=== PATIENT | female | born 1960 | race Caucasian/White ===

== ENCOUNTER → 2018-01-28 09:27 | Outpatient (CLI) | payer OTHER, SELFPAY ==
--- NOTE | 2018-01-28 | DI.MG.S_ITS ---
BILATERAL DIGITAL SCREENING MAMMOGRAM 3D/2D WITH CAD: 01/28/2018 CLINICAL: Routine screening. Family history of breast cancer. Comparison is made to exams dated: 08/08/2016 mammogram, 04/27/2014 mammogram, and 11/20/2011 mammogram - [facility]. The tissue of both breasts is heterogeneously dense. This may lower the sensitivity of mammography. Current study was also evaluated with a Computer Aided Detection (CAD) system. No significant masses, calcifications, or other findings are seen in either breast. There has been no significant interval change. IMPRESSION: NEGATIVE There is no mammographic evidence of malignancy. A 1 year screening mammogram is recommended. This exam was interpreted at Station ID: [id number]. NOTE: For mammograms, a report in lay terms will be sent to the patient. Approximately 15% of breast malignancies will not be visualized mammographically. In the management of a palpable breast mass, a negative mammogram must not discourage biopsy of a clinically suspicious lesion. Electronically Signed By: Shun [email or web address]/[email or web address]:01/29/2018 17:03:15 letter sent: Normal Exam ACR BI-RADS Category 1: Negative [id number]
== END ==
PROVIDERS: Family Provider Family Medicine; PCP Family Medicine; Visit Provider Nurse Practitioner Family
DX: Z12.31 Encounter for screening mammogram for malignant neoplasm of breast (principal); Z80.3 Family history of malignant neoplasm of breast; Z78.0 Asymptomatic menopausal state; Z82.62 Family history of osteoporosis
CPT/HCPCS: 77063; 77067; 77080

== ENCOUNTER 2018-09-11 12:30 | Outpatient (RCR) | payer OTHER, SELFPAY ==
--- NOTE | 2018-06-22 18:24 | PT.OPPOC ---
Current Diagnoses Pain in unspecified knee (06/22/18) Cervicalgia (06/22/18) Provider Visit Care Team Role Provider Type Allen Ruffin MD Attending Provider Physician Family Provider Primary Care Provider Specialty: Family Practice Address: [address] [place] [address], [id number] Email: Plan Of Care PT-OP-T Assessment and Plan Start: 06/22/18 17:03 Freq: Status: Active Protocol: Document 06/19/18 09:00 YOUSIF (Rec: 06/22/18 17:37 [facility] [id number]) Physical Therapy Assessment Rehab Potential Rehabilitation Potential Good Evaluation Complexity Number of Personal Factors/Comorbidities 1-2 Number of Body Systems Impaired 3 Clinical Presentation at Evaluation Stable Impairments Impairments Activity Tolerance Functional Activities Gait Strength Goals Four Impairment strength Penitentiary Goal (LTG) patient will improve her left LE strengthe by at least 1/2 grade all muscle groups and be independent with aquatic exercise program for long-term fitness and pain management. LTG Duration 2 months Three Impairment gait Penitentiary Goal (LTG) Patient will be able to ambulate on level surfaces without a limp and ascend and descend stairs with an alternating step pattern LTG Duration 2 months Two Impairment functional activities Penitentiary Goal (LTG) Patient will be able to perform sit to stand and functional squat without pain, with equal weight on jai LE's LTG Duration 2 months One Impairment activity tolerance Rubber Off Goal (LTG) Lower extremity functional scale increase to 75% LTG Duration 2 months Assessment Summary Assessment Patient presents with functiona-limiting left LE pain, gait dysfunction, activity intolerance, weakness . Feel she would benefit from aquatic therapy to decrease her pain, improve her strength , gait and tolerance for activity. She is highly motivated and comfortable in the water. Physical Therapy Plan Frequency and Duration Frequency of Treatment 2x/Week Duration of Treatment 2 months Plan of Care Start Date 06/19/18 Plan of Care End Date 08/20/18 Therapeutic Interventions Therapeutic Interventions Aquatic Therapy Home Exercise Program Patient/Caregiver Education Self-Care/Home Management Modalities Cold Pack/Ice Massage Next Visit Focus/Plan Next Note Type Treatment Note Next Visit Plan initiate aquatic therapy Plan of Care Dates Plan of Care Start Date 06/19/18 Plan of Care End Date 08/20/18 Please Sign and Return: I have reviewed this Plan of Care and certify that the skilled therapy services above are required to meet the patient?s needs. Physician Signature Date Printed Name and Credentials Clinical Instructor Signature Printed Name and Credentials
--- NOTE | 2018-06-22 18:25 | PT.OIE ---
Current Diagnoses Pain in unspecified knee (06/22/18) Cervicalgia (06/22/18) Difficulty in walking, not elsewhere classified (06/22/18) Abnormal posture (06/22/18) Weakness (06/22/18) Provider Visit Care Team Role Provider Type Allen Ruffin MD Attending Provider Physician Family Provider Primary Care Provider Specialty: Family Practice Address: [address] [place] [address], [id number] Email: Physical Therapy Initial Evaluation PT-OP-A Visit Information Start: 06/22/18 17:03 Freq: Status: Active Protocol: Document 06/19/18 09:00 SAK (Rec: 06/22/18 17:37 [facility] [id number]) Out-Patient Physical Therapy Visit Information Visit Information Visit Type Initial Evaluation Visit Start Time 09:00 Visit Stop Time 09:50 Total Visit Minutes 50 Visit Number 1 Number of FLUMER Visits 0 Evaluation Information Evaluation Date 06/19/18 PT-OP-B Current Condition Start: 06/22/18 17:03 Freq: Status: Active Protocol: Document 06/19/18 09:00 SAK (Rec: 06/22/18 17:37 [facility] [id number]) Current Condition History of Current Condition Onset Date 1 year Current Complaints persistent, function-limiting pain left knee and ankle. History of Current Condition Patient referred to PT with diagnosis of left knee pain and neck pain. Reports her neck pain is mostly mild at this time and would like to focus primarily on her knee pain which she states causes her to limp and makes ambulation on stairs difficult and painful. Has had prior land-based PT with minimal help. Now referred for aquatic physical therapy. States she tries ride her stationary bicycle 30 min every am and walk about 1 mile per day. Her work involves a lot of sitting at a desk and she states she knows her bent posture does not help her neck . Treatment Goals Patient/Caregiver Goals Improve her strength and flexibility, be able to ambulate on level surfaces and stairs without difficulty or limp. PT-OP-C Subjective Start: 06/22/18 17:03 Freq: Status: Active Protocol: Document 06/19/18 09:00 SAK (Rec: 06/22/18 18:17 SAK [id number]) Patient Questionnaires Lower Extremity Functional Scale LEFS Score 57 LEFS Impairment 20 to 39% Impaired (Score 48- 62) Neck Disability Index NDI Score 22 Neck Disability Index Impairment 20 to 39% Impaired (Score 10- 19) PT-OP-G Mobility & Gait Start: 06/22/18 17:03 Freq: Status: Active Protocol: Document 06/19/18 09:00 [facility] (Rec: 06/22/18 17:37 [facility] [id number]) OP Mobility Evaluation Transfers Sit to Stand decreased use of left LE Floor Transfers difficult and painful but independent Functional Movements Lifting and Carrying painful Squats painful Stair Climbing Evaluation Evaluation Level of Assist On Stairs Independent Technique/Endurance Stair Climbing Technique Step to Step Comments Stair Climbing Comments painful PT-OP-J Posture/Palpation/Skin Start: 06/22/18 17:03 Freq: Status: Active Protocol: Document 06/19/18 09:00 [facility] (Rec: 06/22/18 17:37 [facility] [id number]) Palpation Assessment Location left knee Palpation Location joint line Palpation Findings Tenderness Skin Assessment Edema Assessment Left Leg Edema Degree 1+ PT-OP-K Range of Motion Start: 06/22/18 17:03 Freq: Status: Active Protocol: Document 06/19/18 09:00 [facility] (Rec: 06/22/18 17:37 [facility] [id number]) Cervical Spine Range of Motion Cervical Spine Active Comments moderately decreased cervical ROM with c/o stiffness and ache Hip Goniometric Range of Motion Hip ROM Limitations Comments WFL jai Knee Goniometric Range of Motion Knee ROM Limitations Comments WFL but with pain end-range flex and ext Ankle and Foot Goniometric Range of Motion Ankle and Foot ROM Limitations Comments left ankle df 5, right 8 PT-OP-L Special Tests Start: 06/22/18 17:03 Freq: Status: Active Protocol: Document 06/19/18 09:00 [facility] (Rec: 06/22/18 17:37 [facility] [id number]) Special Tests Knee Special Tests Posterior Draw Test Results negative jai Anterior Draw Test Results negative jai Varus- 0 Degrees Test Results negative jai Valgus- 0 Degrees Test Results negative jai PT-OP-M Strength Start: 06/22/18 17:03 Freq: Status: Active Protocol: Document 06/19/18 09:00 [facility] (Rec: 06/22/18 17:37 [facility] [id number]) Hip Strength Hip Manual Muscle Testing Left Flexion (L2) 4 Good Extension (S1) 3+ Fair+ Abduction 4 Good External Rotation 3+ Fair+ Internal Rotation 4+ Good+ Right Flexion (L2) 4 Good Extension (S1) 3+ Fair+ Abduction 4- Good- External Rotation 4- Good- Internal Rotation 4 Good Knee Strength Knee Manual Muscle Testing Left Flexion (S2) 4 Good Extension (L3) 4 Good Comments painful Right Flexion (S2) 5 Normal Extension (L3) 5 Normal Ankle/Foot Strength Ankle and Foot Manual Muscle Testing Left Dorsiflexion (L4) 4 Good Plantarflexion (S1) 4 Good Inversion 4 Good Eversion (S1) 4 Good Right Dorsiflexion (L4) 4+ Good+ Plantarflexion (S1) 4+ Good+ Inversion 4+ Good+ Eversion (S1) 4+ Good+ PT-OP-Q Treatments Start: 06/22/18 17:03 Freq: Status: Active Protocol: Document 06/19/18 09:00 [facility] (Rec: 06/22/18 17:37 [facility] [id number]) Self-Care/Home Management Treatment Education Patient Education Home Exercise Program Other Education written handout issued PT-OP-R Modalities Start: 06/22/18 17:03 Freq: Status: Active Protocol: Document 06/19/18 09:00 [facility] (Rec: 06/22/18 17:37 [facility] [id number]) Hot Pack/Cold Pack Treatment Cold Pack Location left knee Patient Position Hooklying Treatment Duration (minutes) 10 Patient Tolerance Good PT-OP-T Assessment and Plan Start: 06/22/18 17:03 Freq: Status: Active Protocol: Document 06/19/18 09:00 [facility] (Rec: 06/22/18 17:37 [facility] [id number]) Physical Therapy Assessment Rehab Potential Rehabilitation Potential Good Evaluation Complexity Number of Personal Factors/Comorbidities 1-2 Number of Body Systems Impaired 3 Clinical Presentation at Evaluation Stable Impairments Impairments Activity Tolerance Functional Activities Gait Strength Goals Four Impairment strength Residential Goal (LTG) patient will improve her left LE strengthe by at least 1/2 grade all muscle groups and be independent with aquatic exercise program for long-term fitness and pain management. LTG Duration 2 months Three Impairment gait Residential Goal (LTG) Patient will be able to ambulate on level surfaces without a limp and ascend and descend stairs with an alternating step pattern LTG Duration 2 months Two Impairment functional activities Residential Goal (LTG) Patient will be able to perform sit to stand and functional squat without pain, with equal weight on jai LE's LTG Duration 2 months One Impairment activity tolerance Structural Steel Ironworker Goal (LTG) Lower extremity functional scale increase to 75% LTG Duration 2 months Assessment Summary Assessment Patient presents with functiona-limiting left LE pain, gait dysfunction, activity intolerance, weakness . Feel she would benefit from aquatic therapy to decrease her pain, improve her strength , gait and tolerance for activity. She is highly motivated and comfortable in the water. Physical Therapy Plan Frequency and Duration Frequency of Treatment 2x/Week Duration of Treatment 2 months Plan of Care Start Date 06/19/18 Plan of Care End Date 08/20/18 Therapeutic Interventions Therapeutic Interventions Aquatic Therapy Home Exercise Program Patient/Caregiver Education Self-Care/Home Management Modalities Cold Pack/Ice Massage Next Visit Focus/Plan Next Note Type Treatment Note Next Visit Plan initiate aquatic therapy
--- NOTE | 2018-06-23 16:53 | PT.OTN ---
Current Diagnoses Pain in unspecified knee (06/22/18) Cervicalgia (06/22/18) Difficulty in walking, not elsewhere classified (06/22/18) Abnormal posture (06/22/18) Weakness (06/22/18) Physical Therapy Treatment Note PT-OP-A Visit Information Start: 06/22/18 17:03 Freq: Status: Active Protocol: Document 06/22/18 10:15 SAK (Rec: 06/23/18 16:53 [facility] [id number]) Out-Patient Physical Therapy Visit Information Visit Information Visit Type Aquatic Treatment Note Visit Start Time 10:15 Visit Stop Time 11:00 Total Visit Minutes 45 Visit Number 2 Evaluation Information Evaluation Date 06/19/18 PT-OP-B Current Condition Start: 06/22/18 17:03 Freq: Status: Active Protocol: Document 06/19/18 09:00 SAK (Rec: 06/22/18 17:37 [facility] [id number]) Current Condition History of Current Condition Onset Date 1 year Current Complaints persistent, function-limiting pain left knee and ankle. History of Current Condition Patient referred to PT with diagnosis of left knee pain and neck pain. Reports her neck pain is mostly mild at this time and would like to focus primarily on her knee pain which she states causes her to limp and makes ambulation on stairs difficult and painful. Has had prior land-based PT with minimal help. Now referred for aquatic physical therapy. States she tries ride her stationary bicycle 30 min every am and walk about 1 mile per day. Her work involves a lot of sitting at a desk and she states she knows her bent posture does not help her neck . Treatment Goals Patient/Caregiver Goals Improve her strength and flexibility, be able to ambulate on level surfaces and stairs without difficulty or limp. PT-OP-C Subjective Start: 06/22/18 17:03 Freq: Status: Active Protocol: Document 06/22/18 10:15 SAK (Rec: 06/23/18 16:53 [facility] [id number]) OP-PT Subjective Patient Comments Patient Comments Patient excited to try aquatic therapy PT-OP-G Mobility & Gait Start: 06/22/18 17:03 Freq: Status: Active Protocol: Document 06/19/18 09:00 SAK (Rec: 06/22/18 17:37 [facility] [id number]) OP Mobility Evaluation Transfers Sit to Stand decreased use of left LE Floor Transfers difficult and painful but independent Functional Movements Lifting and Carrying painful Squats painful Stair Climbing Evaluation Evaluation Level of Assist On Stairs Independent Technique/Endurance Stair Climbing Technique Step to Step Comments Stair Climbing Comments painful PT-OP-J Posture/Palpation/Skin Start: 06/22/18 17:03 Freq: Status: Active Protocol: Document 06/19/18 09:00 [facility] (Rec: 06/22/18 17:37 [facility] [id number]) Palpation Assessment Location left knee Palpation Location joint line Palpation Findings Tenderness Skin Assessment Edema Assessment Left Leg Edema Degree 1+ PT-OP-K Range of Motion Start: 06/22/18 17:03 Freq: Status: Active Protocol: Document 06/19/18 09:00 [facility] (Rec: 06/22/18 17:37 [facility] [id number]) Cervical Spine Range of Motion Cervical Spine Active Comments moderately decreased cervical ROM with c/o stiffness and ache Hip Goniometric Range of Motion Hip ROM Limitations Comments WFL jai Knee Goniometric Range of Motion Knee ROM Limitations Comments WFL but with pain end-range flex and ext Ankle and Foot Goniometric Range of Motion Ankle and Foot ROM Limitations Comments left ankle df 5, right 8 PT-OP-L Special Tests Start: 06/22/18 17:03 Freq: Status: Active Protocol: Document 06/19/18 09:00 [facility] (Rec: 06/22/18 17:37 [facility] [id number]) Special Tests Knee Special Tests Posterior Draw Test Results negative jai Anterior Draw Test Results negative jai Varus- 0 Degrees Test Results negative jai Valgus- 0 Degrees Test Results negative jai PT-OP-M Strength Start: 06/22/18 17:03 Freq: Status: Active Protocol: Document 06/19/18 09:00 [facility] (Rec: 06/22/18 17:37 [facility] [id number]) Hip Strength Hip Manual Muscle Testing Left Flexion (L2) 4 Good Extension (S1) 3+ Fair+ Abduction 4 Good External Rotation 3+ Fair+ Internal Rotation 4+ Good+ Right Flexion (L2) 4 Good Extension (S1) 3+ Fair+ Abduction 4- Good- External Rotation 4- Good- Internal Rotation 4 Good Knee Strength Knee Manual Muscle Testing Left Flexion (S2) 4 Good Extension (L3) 4 Good Comments painful Right Flexion (S2) 5 Normal Extension (L3) 5 Normal Ankle/Foot Strength Ankle and Foot Manual Muscle Testing Left Dorsiflexion (L4) 4 Good Plantarflexion (S1) 4 Good Inversion 4 Good Eversion (S1) 4 Good Right Dorsiflexion (L4) 4+ Good+ Plantarflexion (S1) 4+ Good+ Inversion 4+ Good+ Eversion (S1) 4+ Good+ PT-OP-Q Treatments Start: 06/22/18 17:03 Freq: Status: Active Protocol: Document 06/19/18 09:00 [facility] (Rec: 06/22/18 17:37 [facility] [id number]) Self-Care/Home Management Treatment Education Patient Education Home Exercise Program Other Education written handout issued PT-OP-R Modalities Start: 06/22/18 17:03 Freq: Status: Active Protocol: Document 06/19/18 09:00 SAK (Rec: 06/22/18 17:37 [facility] [id number]) Hot Pack/Cold Pack Treatment Cold Pack Location left knee Patient Position Hooklying Treatment Duration (minutes) 10 Patient Tolerance Good PT-OP-S Aquatic Treatment Start: 06/22/18 17:03 Freq: Status: Active Protocol: Document 06/22/18 10:15 SAK (Rec: 06/23/18 16:53 [facility] [id number]) Aquatics Treatment Pool Entry/Exit Pool Entry/Exit Method Stairs Assistance Independent Water Walking fwd,bck,september Water Level Chest Level Level of Assistance Verbal Cues Lower Extremity Exercises knee flex/ext Reps/Duration 10x squats Reps/Duration 10x heel raises Body Position Standing Water Level Chest Level Reps/Duration 10x hip ab/ad, flex/ex Body Position Standing Water Level Chest Level Reps/Duration 10x Lower Extremity Stretches quads Body Position Standing Water Level Chest Level Equipment Ankle Floats HS, ITB, hip add Body Position Standing Water Level Chest Level Equipment Ankle Floats Reps/Duration 2x [place] Activities [place] Activities Bicycle Cross Country Running Equipment flotation belt Duration 15 min PT-OP-T Assessment and Plan Start: 06/22/18 17:03 Freq: Status: Active Protocol: Document 06/22/18 10:15 SAK (Rec: 06/23/18 16:53 [facility] [id number]) Physical Therapy Assessment Impairments Impairments Activity Tolerance Functional Activities Gait Strength Goals Four Impairment strength Mcc Goal (LTG) patient will improve her left LE strengthe by at least 1/2 grade all muscle groups and be independent with aquatic exercise program for long-term fitness and pain management. LTG Duration 2 months Three Impairment gait Licensed Esthetician Goal (LTG) Patient will be able to ambulate on level surfaces without a limp and ascend and descend stairs with an alternating step pattern LTG Duration 2 months Two Impairment functional activities Mcc Goal (LTG) Patient will be able to perform sit to stand and functional squat without pain, with equal weight on jai LE's LTG Duration 2 months One Impairment activity tolerance Licensed Esthetician Goal (LTG) Lower extremity functional scale increase to 75% LTG Duration 2 months Assessment Summary Assessment Good tolerance for aquatic exercise with mod cues for alignment and performance. Denied increase in pain Physical Therapy Plan Next Visit Focus/Plan Next Note Type Treatment Note Next Visit Plan add step-ups, sit-kicks. Increase intensity and repetitions as toleated.
--- NOTE | 2018-07-06 15:20 | PT.OTN ---
Current Diagnoses Pain in unspecified knee (07/06/18) Cervicalgia (07/06/18) Physical Therapy Treatment Note PT-OP-A Visit Information Start: 06/22/18 17:03 Freq: Status: Active Protocol: Document 07/06/18 10:15 SAK (Rec: 07/06/18 15:19 [facility] [id number]) Out-Patient Physical Therapy Visit Information Visit Information Visit Type Aquatic Treatment Note Visit Start Time 10:15 Visit Stop Time 11:00 Total Visit Minutes 45 Visit Number 3 Number of HEALTH ASSESSMENT AND TREATMENT TEACHER Visits 0 Evaluation Information Evaluation Date 06/19/18 PT-OP-B Current Condition Start: 06/22/18 17:03 Freq: Status: Active Protocol: Document 06/19/18 09:00 SAK (Rec: 06/22/18 17:37 [facility] [id number]) Current Condition History of Current Condition Onset Date 1 year Current Complaints persistent, function-limiting pain left knee and ankle. History of Current Condition Patient referred to PT with diagnosis of left knee pain and neck pain. Reports her neck pain is mostly mild at this time and would like to focus primarily on her knee pain which she states causes her to limp and makes ambulation on stairs difficult and painful. Has had prior land-based PT with minimal help. Now referred for aquatic physical therapy. States she tries ride her stationary bicycle 30 min every am and walk about 1 mile per day. Her work involves a lot of sitting at a desk and she states she knows her bent posture does not help her neck . Treatment Goals Patient/Caregiver Goals Improve her strength and flexibility, be able to ambulate on level surfaces and stairs without difficulty or limp. PT-OP-C Subjective Start: 06/22/18 17:03 Freq: Status: Active Protocol: Document 07/06/18 10:15 SAK (Rec: 07/06/18 15:19 [facility] [id number]) OP-PT Subjective Patient Comments Patient Comments Reports a little muscle soreness after PT but overall decreased knee pain for 1-2 days after, then pain returned . PT-OP-G Mobility & Gait Start: 06/22/18 17:03 Freq: Status: Active Protocol: Document 06/19/18 09:00 SAK (Rec: 06/22/18 17:37 [facility] [id number]) OP Mobility Evaluation Transfers Sit to Stand decreased use of left LE Floor Transfers difficult and painful but independent Functional Movements Lifting and Carrying painful Squats painful Stair Climbing Evaluation Evaluation Level of Assist On Stairs Independent Technique/Endurance Stair Climbing Technique Step to Step Comments Stair Climbing Comments painful PT-OP-J Posture/Palpation/Skin Start: 06/22/18 17:03 Freq: Status: Active Protocol: Document 06/19/18 09:00 [facility] (Rec: 06/22/18 17:37 [facility] [id number]) Palpation Assessment Location left knee Palpation Location joint line Palpation Findings Tenderness Skin Assessment Edema Assessment Left Leg Edema Degree 1+ PT-OP-K Range of Motion Start: 06/22/18 17:03 Freq: Status: Active Protocol: Document 06/19/18 09:00 [facility] (Rec: 06/22/18 17:37 [facility] [id number]) Cervical Spine Range of Motion Cervical Spine Active Comments moderately decreased cervical ROM with c/o stiffness and ache Hip Goniometric Range of Motion Hip ROM Limitations Comments WFL jai Knee Goniometric Range of Motion Knee ROM Limitations Comments WFL but with pain end-range flex and ext Ankle and Foot Goniometric Range of Motion Ankle and Foot ROM Limitations Comments left ankle df 5, right 8 PT-OP-L Special Tests Start: 06/22/18 17:03 Freq: Status: Active Protocol: Document 06/19/18 09:00 [facility] (Rec: 06/22/18 17:37 [facility] [id number]) Special Tests Knee Special Tests Posterior Draw Test Results negative jai Anterior Draw Test Results negative jai Varus- 0 Degrees Test Results negative jai Valgus- 0 Degrees Test Results negative jai PT-OP-M Strength Start: 06/22/18 17:03 Freq: Status: Active Protocol: Document 06/19/18 09:00 [facility] (Rec: 06/22/18 17:37 [facility] [id number]) Hip Strength Hip Manual Muscle Testing Left Flexion (L2) 4 Good Extension (S1) 3+ Fair+ Abduction 4 Good External Rotation 3+ Fair+ Internal Rotation 4+ Good+ Right Flexion (L2) 4 Good Extension (S1) 3+ Fair+ Abduction 4- Good- External Rotation 4- Good- Internal Rotation 4 Good Knee Strength Knee Manual Muscle Testing Left Flexion (S2) 4 Good Extension (L3) 4 Good Comments painful Right Flexion (S2) 5 Normal Extension (L3) 5 Normal Ankle/Foot Strength Ankle and Foot Manual Muscle Testing Left Dorsiflexion (L4) 4 Good Plantarflexion (S1) 4 Good Inversion 4 Good Eversion (S1) 4 Good Right Dorsiflexion (L4) 4+ Good+ Plantarflexion (S1) 4+ Good+ Inversion 4+ Good+ Eversion (S1) 4+ Good+ PT-OP-Q Treatments Start: 06/22/18 17:03 Freq: Status: Active Protocol: Document 06/19/18 09:00 [facility] (Rec: 06/22/18 17:37 [facility] [id number]) Self-Care/Home Management Treatment Education Patient Education Home Exercise Program Other Education written handout issued PT-OP-R Modalities Start: 06/22/18 17:03 Freq: Status: Active Protocol: Document 06/19/18 09:00 [facility] (Rec: 06/22/18 17:37 [facility] [id number]) Hot Pack/Cold Pack Treatment Cold Pack Location left knee Patient Position Hooklying Treatment Duration (minutes) 10 Patient Tolerance Good PT-OP-S Aquatic Treatment Start: 06/22/18 17:03 Freq: Status: Active Protocol: Document 07/06/18 10:15 SAK (Rec: 07/06/18 15:19 [facility] [id number]) Aquatics Treatment Pool Entry/Exit Pool Entry/Exit Method Stairs Assistance Independent Water Walking [place] September Level of Assistance Contact Guard Assistance Verbal Cues fwd,bck,side, september Water Level Chest Level Level of Assistance Verbal Cues Lower Extremity Exercises step-ups Equipment large boxes Reps/Duration 10x leading ea knee flex/ext Reps/Duration 15x squats Reps/Duration 15x heel raises Body Position Standing Water Level Chest Level Reps/Duration 10x hip ab/ad, flex/ex Body Position Standing Water Level Chest Level Reps/Duration 10x Lower Extremity Stretches quads Body Position Standing Water Level Chest Level Equipment Ankle Floats HS, ITB, hip add Body Position Standing Water Level Chest Level Equipment Ankle Floats Reps/Duration 2x [place] Activities [place] Activities Bicycle Cross Country Running Equipment none Duration 15 min PT-OP-T Assessment and Plan Start: 06/22/18 17:03 Freq: Status: Active Protocol: Document 07/06/18 10:15 SAK (Rec: 07/06/18 15:19 [facility] [id number]) Physical Therapy Assessment Goals Four Impairment strength Skilled Nursing Goal (LTG) patient will improve her left LE strengthe by at least 1/2 grade all muscle groups and be independent with aquatic exercise program for long-term fitness and pain management. LTG Duration 2 months Three Impairment gait Skilled Nursing Goal (LTG) Patient will be able to ambulate on level surfaces without a limp and ascend and descend stairs with an alternating step pattern LTG Duration 2 months Two Impairment functional activities Skilled Nursing Goal (LTG) Patient will be able to perform sit to stand and functional squat without pain, with equal weight on jai LE's LTG Duration 2 months One Impairment activity tolerance Table Assembler Metal Goal (LTG) Lower extremity functional scale increase to 75% LTG Duration 2 months Assessment Summary Assessment Able to progress aquatic exercise program with good tolerance today. Physical Therapy Plan Frequency and Duration Frequency of Treatment 2x/Week Duration of Treatment 2 months Plan of Care Start Date 06/19/18 Plan of Care End Date 08/20/18 Therapeutic Interventions Therapeutic Interventions Aquatic Therapy Home Exercise Program Patient/Caregiver Education Self-Care/Home Management Modalities Cold Pack/Ice Massage Next Visit Focus/Plan Next Note Type Treatment Note Next Visit Plan add sit-kicks. Increase intensity and repetitions as tolerated.
--- NOTE | 2018-07-20 14:46 | PT.OTN ---
Current Diagnoses Pain in unspecified knee (07/20/18) Cervicalgia (07/20/18) Physical Therapy Treatment Note PT-OP-A Visit Information Start: 06/22/18 17:03 Freq: Status: Active Protocol: Document 07/20/18 10:15 [facility] (Rec: 07/20/18 14:46 [facility] [id number]) Out-Patient Physical Therapy Visit Information Visit Information Visit Type Aquatic Treatment Note Visit Start Time 10:15 Visit Stop Time 11:00 Total Visit Minutes 45 Visit Number 4 Number of SPINNER IRON Visits 1 PT-OP-B Current Condition Start: 06/22/18 17:03 Freq: Status: Active Protocol: Document 06/19/18 09:00 SAK (Rec: 06/22/18 17:37 SAK [id number]) Current Condition History of Current Condition Onset Date 1 year Current Complaints persistent, function-limiting pain left knee and ankle. History of Current Condition Patient referred to PT with diagnosis of left knee pain and neck pain. Reports her neck pain is mostly mild at this time and would like to focus primarily on her knee pain which she states causes her to limp and makes ambulation on stairs difficult and painful. Has had prior land-based PT with minimal help. Now referred for aquatic physical therapy. States she tries ride her stationary bicycle 30 min every am and walk about 1 mile per day. Her work involves a lot of sitting at a desk and she states she knows her bent posture does not help her neck . Treatment Goals Patient/Caregiver Goals Improve her strength and flexibility, be able to ambulate on level surfaces and stairs without difficulty or limp. PT-OP-C Subjective Start: 06/22/18 17:03 Freq: Status: Active Protocol: Document 07/20/18 10:15 [facility] (Rec: 07/20/18 14:46 LJ [id number]) OP-PT Subjective Patient Comments Patient Comments Pt states some knee pain but not terrible. PT-OP-G Mobility & Gait Start: 06/22/18 17:03 Freq: Status: Active Protocol: Document 06/19/18 09:00 SAK (Rec: 06/22/18 17:37 SAK [id number]) OP Mobility Evaluation Transfers Sit to Stand decreased use of left LE Floor Transfers difficult and painful but independent Functional Movements Lifting and Carrying painful Squats painful Stair Climbing Evaluation Evaluation Level of Assist On Stairs Independent Technique/Endurance Stair Climbing Technique Step to Step Comments Stair Climbing Comments painful PT-OP-J Posture/Palpation/Skin Start: 06/22/18 17:03 Freq: Status: Active Protocol: Document 06/19/18 09:00 [facility] (Rec: 06/22/18 17:37 [facility] [id number]) Palpation Assessment Location left knee Palpation Location joint line Palpation Findings Tenderness Skin Assessment Edema Assessment Left Leg Edema Degree 1+ PT-OP-K Range of Motion Start: 06/22/18 17:03 Freq: Status: Active Protocol: Document 06/19/18 09:00 [facility] (Rec: 06/22/18 17:37 [facility] [id number]) Cervical Spine Range of Motion Cervical Spine Active Comments moderately decreased cervical ROM with c/o stiffness and ache Hip Goniometric Range of Motion Hip ROM Limitations Comments WFL jai Knee Goniometric Range of Motion Knee ROM Limitations Comments WFL but with pain end-range flex and ext Ankle and Foot Goniometric Range of Motion Ankle and Foot ROM Limitations Comments left ankle df 5, right 8 PT-OP-L Special Tests Start: 06/22/18 17:03 Freq: Status: Active Protocol: Document 06/19/18 09:00 [facility] (Rec: 06/22/18 17:37 [facility] [id number]) Special Tests Knee Special Tests Posterior Draw Test Results negative jai Anterior Draw Test Results negative jai Varus- 0 Degrees Test Results negative jai Valgus- 0 Degrees Test Results negative jai PT-OP-M Strength Start: 06/22/18 17:03 Freq: Status: Active Protocol: Document 06/19/18 09:00 [facility] (Rec: 06/22/18 17:37 [facility] [id number]) Hip Strength Hip Manual Muscle Testing Left Flexion (L2) 4 Good Extension (S1) 3+ Fair+ Abduction 4 Good External Rotation 3+ Fair+ Internal Rotation 4+ Good+ Right Flexion (L2) 4 Good Extension (S1) 3+ Fair+ Abduction 4- Good- External Rotation 4- Good- Internal Rotation 4 Good Knee Strength Knee Manual Muscle Testing Left Flexion (S2) 4 Good Extension (L3) 4 Good Comments painful Right Flexion (S2) 5 Normal Extension (L3) 5 Normal Ankle/Foot Strength Ankle and Foot Manual Muscle Testing Left Dorsiflexion (L4) 4 Good Plantarflexion (S1) 4 Good Inversion 4 Good Eversion (S1) 4 Good Right Dorsiflexion (L4) 4+ Good+ Plantarflexion (S1) 4+ Good+ Inversion 4+ Good+ Eversion (S1) 4+ Good+ PT-OP-Q Treatments Start: 06/22/18 17:03 Freq: Status: Active Protocol: Document 06/19/18 09:00 SAK (Rec: 06/22/18 17:37 SAK [id number]) Self-Care/Home Management Treatment Education Patient Education Home Exercise Program Other Education written handout issued PT-OP-R Modalities Start: 06/22/18 17:03 Freq: Status: Active Protocol: Document 06/19/18 09:00 SAK (Rec: 06/22/18 17:37 SAK [id number]) Hot Pack/Cold Pack Treatment Cold Pack Location left knee Patient Position Hooklying Treatment Duration (minutes) 10 Patient Tolerance Good PT-OP-S Aquatic Treatment Start: 06/22/18 17:03 Freq: Status: Active Protocol: Document 07/20/18 10:15 [facility] (Rec: 07/20/18 14:46 [facility] [id number]) Aquatics Treatment Pool Entry/Exit Pool Entry/Exit Method Stairs Assistance Independent Water Walking [place] September Level of Assistance Standby Assistance Verbal Cues fwd,bck,side, september Water Level Chest Level Level of Assistance Verbal Cues Lower Extremity Exercises sit kicks Details squating at wall Reps/Duration 10x bilat hip circumduction bilat both directions Equipment 10 bilat, each dir step-ups Equipment large boxes Reps/Duration 10x leading ea knee flex/ext Reps/Duration 15x squats Reps/Duration 15x Comments vc for muscle sequencing heel raises Body Position Standing Water Level Chest Level Reps/Duration 10x Comments toe raises also hip ab/ad, flex/ex Body Position Standing Water Level Chest Level Reps/Duration 10x Lower Extremity Stretches quads Body Position Standing Water Level Chest Level Equipment noodle Reps/Duration 2x HS, ITB, hip add Body Position Standing Water Level Chest Level Equipment noodle Reps/Duration 2x [place] Activities [place] Activities Bicycle Cross Country Running Other Activities corner SLR x10 verbal cues for core activation Equipment none Duration 15 min PT-OP-T Assessment and Plan Start: 06/22/18 17:03 Freq: Status: Active Protocol: Document 07/20/18 10:15 [facility] (Rec: 07/20/18 14:46 [facility] [id number]) Physical Therapy Assessment Rehab Potential Rehabilitation Potential Good Evaluation Complexity Number of Personal Factors/Comorbidities 1-2 Number of Body Systems Impaired 3 Clinical Presentation at Evaluation Stable Impairments Impairments Activity Tolerance Functional Activities Gait Strength Goals Four Impairment strength Itinerant Teacher Assistant Goal (LTG) patient will improve her left LE strengthe by at least 1/2 grade all muscle groups and be independent with aquatic exercise program for long-term fitness and pain management. LTG Duration 2 months Three Impairment gait Half-Way Goal (LTG) Patient will be able to ambulate on level surfaces without a limp and ascend and descend stairs with an alternating step pattern LTG Duration 2 months Two Impairment functional activities Half-Way Goal (LTG) Patient will be able to perform sit to stand and functional squat without pain, with equal weight on jai LE's LTG Duration 2 months One Impairment activity tolerance Half-Way Goal (LTG) Lower extremity functional scale increase to 75% LTG Duration 2 months Assessment Summary Assessment Pt had some difficulty sequencing muscle activation in squats and step ups. Overall her posture improved during session and she was able to increase intensity and power of movements in deep and standing exercises. Physical Therapy Plan Frequency and Duration Frequency of Treatment 2x/Week Duration of Treatment 2 months Plan of Care Start Date 06/19/18 Plan of Care End Date 08/20/18 Therapeutic Interventions Therapeutic Interventions Aquatic Therapy Home Exercise Program Patient/Caregiver Education Self-Care/Home Management Modalities Cold Pack/Ice Massage Next Visit Focus/Plan Next Note Type Treatment Note Next Visit Plan Increase intensity and repetitions as tolerated. Incorporate posterior chain exercises and balance work in shallow.
--- NOTE | 2018-08-24 17:57 | PT.OTRE ---
Current Diagnoses Pain in unspecified knee (08/24/18) Cervicalgia (08/24/18) Provider Visit Care Team Role Provider Type Allen Ruffin MD Attending Provider Physician Family Provider Primary Care Provider Specialty: Family Practice Address: [address] [place] [address], [id number] Email: Physical Therapy Re-Evaluation PT-OP-A Visit Information Start: 06/22/18 17:03 Freq: Status: Active Protocol: Document 08/24/18 10:15 SAK (Rec: 08/24/18 17:56 [facility] [id number]) Out-Patient Physical Therapy Visit Information Visit Information Visit Type Aquatic Treatment Note Visit Start Time 10:15 Visit Stop Time 11:00 Total Visit Minutes 45 Visit Number 5 Number of TILE EDGER Visits 0 Evaluation Information Evaluation Date 06/19/18 PT-OP-B Current Condition Start: 06/22/18 17:03 Freq: Status: Active Protocol: Document 06/19/18 09:00 SAK (Rec: 06/22/18 17:37 [facility] [id number]) Current Condition History of Current Condition Onset Date 1 year Current Complaints persistent, function-limiting pain left knee and ankle. History of Current Condition Patient referred to PT with diagnosis of left knee pain and neck pain. Reports her neck pain is mostly mild at this time and would like to focus primarily on her knee pain which she states causes her to limp and makes ambulation on stairs difficult and painful. Has had prior land-based PT with minimal help. Now referred for aquatic physical therapy. States she tries ride her stationary bicycle 30 min every am and walk about 1 mile per day. Her work involves a lot of sitting at a desk and she states she knows her bent posture does not help her neck . Treatment Goals Patient/Caregiver Goals Improve her strength and flexibility, be able to ambulate on level surfaces and stairs without difficulty or limp. PT-OP-C Subjective Start: 06/22/18 17:03 Freq: Status: Active Protocol: Document 08/24/18 10:15 SAK (Rec: 08/24/18 17:56 [facility] [id number]) OP-PT Subjective Patient Comments Patient Comments Reports she is feeling stronger, remembering to activate gluteals with walking including on stairs and states it is making a difference with her pain, she reports feeling stronger. Glad to be back in the water for aquatic therapy after needing to cancel due to weather after being gone for vacation. PT-OP-G Mobility & Gait Start: 06/22/18 17:03 Freq: Status: Active Protocol: Document 06/19/18 09:00 [facility] (Rec: 06/22/18 17:37 [facility] [id number]) OP Mobility Evaluation Transfers Sit to Stand decreased use of left LE Floor Transfers difficult and painful but independent Functional Movements Lifting and Carrying painful Squats painful Stair Climbing Evaluation Evaluation Level of Assist On Stairs Independent Technique/Endurance Stair Climbing Technique Step to Step Comments Stair Climbing Comments painful PT-OP-J Posture/Palpation/Skin Start: 06/22/18 17:03 Freq: Status: Active Protocol: Document 06/19/18 09:00 [facility] (Rec: 06/22/18 17:37 [facility] [id number]) Palpation Assessment Location left knee Palpation Location joint line Palpation Findings Tenderness Skin Assessment Edema Assessment Left Leg Edema Degree 1+ PT-OP-K Range of Motion Start: 06/22/18 17:03 Freq: Status: Active Protocol: Document 06/19/18 09:00 [facility] (Rec: 06/22/18 17:37 [facility] [id number]) Cervical Spine Range of Motion Cervical Spine Active Comments moderately decreased cervical ROM with c/o stiffness and ache Hip Goniometric Range of Motion Hip ROM Limitations Comments WFL jai Knee Goniometric Range of Motion Knee ROM Limitations Comments WFL but with pain end-range flex and ext Ankle and Foot Goniometric Range of Motion Ankle and Foot ROM Limitations Comments left ankle df 5, right 8 PT-OP-L Special Tests Start: 06/22/18 17:03 Freq: Status: Active Protocol: Document 06/19/18 09:00 [facility] (Rec: 06/22/18 17:37 [facility] [id number]) Special Tests Knee Special Tests Posterior Draw Test Results negative jai Anterior Draw Test Results negative jai Varus- 0 Degrees Test Results negative jai Valgus- 0 Degrees Test Results negative jai PT-OP-M Strength Start: 06/22/18 17:03 Freq: Status: Active Protocol: Document 06/19/18 09:00 [facility] (Rec: 06/22/18 17:37 [facility] [id number]) Hip Strength Hip Manual Muscle Testing Left Flexion (L2) 4 Good Extension (S1) 3+ Fair+ Abduction 4 Good External Rotation 3+ Fair+ Internal Rotation 4+ Good+ Right Flexion (L2) 4 Good Extension (S1) 3+ Fair+ Abduction 4- Good- External Rotation 4- Good- Internal Rotation 4 Good Knee Strength Knee Manual Muscle Testing Left Flexion (S2) 4 Good Extension (L3) 4 Good Comments painful Right Flexion (S2) 5 Normal Extension (L3) 5 Normal Ankle/Foot Strength Ankle and Foot Manual Muscle Testing Left Dorsiflexion (L4) 4 Good Plantarflexion (S1) 4 Good Inversion 4 Good Eversion (S1) 4 Good Right Dorsiflexion (L4) 4+ Good+ Plantarflexion (S1) 4+ Good+ Inversion 4+ Good+ Eversion (S1) 4+ Good+ PT-OP-Q Treatments Start: 06/22/18 17:03 Freq: Status: Active Protocol: Document 06/19/18 09:00 [facility] (Rec: 06/22/18 17:37 [facility] [id number]) Self-Care/Home Management Treatment Education Patient Education Home Exercise Program Other Education written handout issued PT-OP-R Modalities Start: 06/22/18 17:03 Freq: Status: Active Protocol: Document 06/19/18 09:00 [facility] (Rec: 06/22/18 17:37 [facility] [id number]) Hot Pack/Cold Pack Treatment Cold Pack Location left knee Patient Position Hooklying Treatment Duration (minutes) 10 Patient Tolerance Good PT-OP-T Assessment and Plan Start: 06/22/18 17:03 Freq: Status: Active Protocol: Document 08/24/18 10:15 [facility] (Rec: 08/24/18 17:56 [facility] [id number]) Physical Therapy Assessment Impairments Impairments Activity Tolerance Functional Activities Gait Strength Goals Four Impairment strength Rolling Up Machine Operator Goal (LTG) patient will improve her left LE strengthe by at least 1/2 grade all muscle groups and be independent with aquatic exercise program for long-term fitness and pain management. (08/24/18: good goal progress) LTG Duration 09/21/18 Three Impairment gait Rolling Up Machine Operator Goal (LTG) Patient will be able to ambulate on level surfaces without a limp and ascend and descend stairs with an alternating step pattern (08/24/18: good goal progress) LTG Duration 09/21/18 Two Impairment functional activities Rolling Up Machine Operator Goal (LTG) Patient will be able to perform sit to stand and functional squat without pain, with equal weight on jai LE's (08/24/18: good goal progress) LTG Duration 09/21/18 One Impairment activity tolerance Senior Care Goal (LTG) Lower extremity functional scale increase to 75% (08/24/18 : good goal progress, inc to 64%) LTG Duration 09/21/18 Assessment Summary Assessment Patient making good progress toward goals. Has missed appointments recently due to weather. Would benefit from further PT to progress her to an independent aquatic exercise program for long-term fitness and pain management. She is highly motivated. Physical Therapy Plan Frequency and Duration Frequency of Treatment 4 visits Duration of Treatment 4 wks Plan of Care Start Date 08/24/18 Plan of Care End Date 09/22/18 Therapeutic Interventions Therapeutic Interventions Aquatic Therapy Home Exercise Program Patient/Caregiver Education Self-Care/Home Management Next Visit Focus/Plan Next Note Type Treatment Note Next Visit Plan Continue to progress aquatic exercise program for strengthening, flexibility, and balance to decrease patient's pain and improve her functional activity tolerance .
--- NOTE | 2018-08-24 17:57 | PT.OPPOC ---
Current Diagnoses Pain in unspecified knee (08/24/18) Cervicalgia (08/24/18) Provider Visit Care Team Role Provider Type Allen Ruffin MD Attending Provider Physician Family Provider Primary Care Provider Specialty: Family Practice Address: [address] [place] [address], [id number] Email: Plan Of Care PT-OP-T Assessment and Plan Start: 06/22/18 17:03 Freq: Status: Active Protocol: Document 08/24/18 10:15 SAK (Rec: 08/24/18 17:56 [facility] [id number]) Physical Therapy Assessment Impairments Impairments Activity Tolerance Functional Activities Gait Strength Goals Four Impairment strength Custodial Goal (LTG) patient will improve her left LE strengthe by at least 1/2 grade all muscle groups and be independent with aquatic exercise program for long-term fitness and pain management. (08/24/18: good goal progress) LTG Duration 09/21/18 Three Impairment gait Tool Crib Supervisor Goal (LTG) Patient will be able to ambulate on level surfaces without a limp and ascend and descend stairs with an alternating step pattern (08/24/18: good goal progress) LTG Duration 09/21/18 Two Impairment functional activities Custodial Goal (LTG) Patient will be able to perform sit to stand and functional squat without pain, with equal weight on jai LE's (08/24/18: good goal progress) LTG Duration 09/21/18 One Impairment activity tolerance Custodial Goal (LTG) Lower extremity functional scale increase to 75% (08/24/18 : good goal progress, inc to 64%) LTG Duration 09/21/18 Assessment Summary Assessment Patient making good progress toward goals. Has missed appointments recently due to weather. Would benefit from further PT to progress her to an independent aquatic exercise program for long-term fitness and pain management. She is highly motivated. Physical Therapy Plan Frequency and Duration Frequency of Treatment 4 visits Duration of Treatment 4 wks Plan of Care Start Date 08/24/18 Plan of Care End Date 09/22/18 Therapeutic Interventions Therapeutic Interventions Aquatic Therapy Home Exercise Program Patient/Caregiver Education Self-Care/Home Management Next Visit Focus/Plan Next Note Type Treatment Note Next Visit Plan Continue to progress aquatic exercise program for strengthening, flexibility, and balance to decrease patient's pain and improve her functional activity tolerance . Plan of Care Dates Plan of Care Start Date 08/24/18 Plan of Care End Date 09/22/18 Please Sign and Return: I have reviewed this Plan of Care and certify that the skilled therapy services above are required to meet the patient?s needs. Physician Signature Date Printed Name and Credentials Clinical Instructor Signature Printed Name and Credentials
--- NOTE | 2018-08-31 16:33 | PT.OTN ---
Current Diagnoses Pain in unspecified knee (08/31/18) Cervicalgia (08/31/18) Physical Therapy Treatment Note PT-OP-A Visit Information Start: 06/22/18 17:03 Freq: Status: Active Protocol: Document 08/31/18 10:15 CLB (Rec: 08/31/18 16:33 CLB [id number]) Out-Patient Physical Therapy Visit Information Visit Information Visit Type Aquatic Treatment Note Visit Start Time 10:15 Visit Stop Time 11:00 Total Visit Minutes 45 Visit Number 6 Number of SMOKING PIPE MOUNTER Visits 1 Evaluation Information Evaluation Date 06/19/18 PT-OP-B Current Condition Start: 06/22/18 17:03 Freq: Status: Active Protocol: Document 06/19/18 09:00 SAK (Rec: 06/22/18 17:37 SAK [id number]) Current Condition History of Current Condition Onset Date 1 year Current Complaints persistent, function-limiting pain left knee and ankle. History of Current Condition Patient referred to PT with diagnosis of left knee pain and neck pain. Reports her neck pain is mostly mild at this time and would like to focus primarily on her knee pain which she states causes her to limp and makes ambulation on stairs difficult and painful. Has had prior land-based PT with minimal help. Now referred for aquatic physical therapy. States she tries ride her stationary bicycle 30 min every am and walk about 1 mile per day. Her work involves a lot of sitting at a desk and she states she knows her bent posture does not help her neck . Treatment Goals Patient/Caregiver Goals Improve her strength and flexibility, be able to ambulate on level surfaces and stairs without difficulty or limp. PT-OP-C Subjective Start: 06/22/18 17:03 Freq: Status: Active Protocol: Document 08/31/18 10:15 CLB (Rec: 08/31/18 16:33 CLB [id number]) OP-PT Subjective Patient Comments Patient Comments Pt states pain in knee has been better and is planning on going to an aquatic exercise class. PT-OP-G Mobility & Gait Start: 06/22/18 17:03 Freq: Status: Active Protocol: Document 06/19/18 09:00 SAK (Rec: 06/22/18 17:37 SAK [id number]) OP Mobility Evaluation Transfers Sit to Stand decreased use of left LE Floor Transfers difficult and painful but independent Functional Movements Lifting and Carrying painful Squats painful Stair Climbing Evaluation Evaluation Level of Assist On Stairs Independent Technique/Endurance Stair Climbing Technique Step to Step Comments Stair Climbing Comments painful PT-OP-J Posture/Palpation/Skin Start: 06/22/18 17:03 Freq: Status: Active Protocol: Document 06/19/18 09:00 [facility] (Rec: 06/22/18 17:37 [facility] [id number]) Palpation Assessment Location left knee Palpation Location joint line Palpation Findings Tenderness Skin Assessment Edema Assessment Left Leg Edema Degree 1+ PT-OP-K Range of Motion Start: 06/22/18 17:03 Freq: Status: Active Protocol: Document 06/19/18 09:00 [facility] (Rec: 06/22/18 17:37 [facility] [id number]) Cervical Spine Range of Motion Cervical Spine Active Comments moderately decreased cervical ROM with c/o stiffness and ache Hip Goniometric Range of Motion Hip ROM Limitations Comments WFL jai Knee Goniometric Range of Motion Knee ROM Limitations Comments WFL but with pain end-range flex and ext Ankle and Foot Goniometric Range of Motion Ankle and Foot ROM Limitations Comments left ankle df 5, right 8 PT-OP-L Special Tests Start: 06/22/18 17:03 Freq: Status: Active Protocol: Document 06/19/18 09:00 [facility] (Rec: 06/22/18 17:37 [facility] [id number]) Special Tests Knee Special Tests Posterior Draw Test Results negative jai Anterior Draw Test Results negative jai Varus- 0 Degrees Test Results negative jai Valgus- 0 Degrees Test Results negative jai PT-OP-M Strength Start: 06/22/18 17:03 Freq: Status: Active Protocol: Document 06/19/18 09:00 [facility] (Rec: 06/22/18 17:37 [facility] [id number]) Hip Strength Hip Manual Muscle Testing Left Flexion (L2) 4 Good Extension (S1) 3+ Fair+ Abduction 4 Good External Rotation 3+ Fair+ Internal Rotation 4+ Good+ Right Flexion (L2) 4 Good Extension (S1) 3+ Fair+ Abduction 4- Good- External Rotation 4- Good- Internal Rotation 4 Good Knee Strength Knee Manual Muscle Testing Left Flexion (S2) 4 Good Extension (L3) 4 Good Comments painful Right Flexion (S2) 5 Normal Extension (L3) 5 Normal Ankle/Foot Strength Ankle and Foot Manual Muscle Testing Left Dorsiflexion (L4) 4 Good Plantarflexion (S1) 4 Good Inversion 4 Good Eversion (S1) 4 Good Right Dorsiflexion (L4) 4+ Good+ Plantarflexion (S1) 4+ Good+ Inversion 4+ Good+ Eversion (S1) 4+ Good+ PT-OP-Q Treatments Start: 06/22/18 17:03 Freq: Status: Active Protocol: Document 06/19/18 09:00 SAK (Rec: 06/22/18 17:37 [facility] [id number]) Self-Care/Home Management Treatment Education Patient Education Home Exercise Program Other Education written handout issued PT-OP-R Modalities Start: 06/22/18 17:03 Freq: Status: Active Protocol: Document 06/19/18 09:00 SAK (Rec: 06/22/18 17:37 [facility] [id number]) Hot Pack/Cold Pack Treatment Cold Pack Location left knee Patient Position Hooklying Treatment Duration (minutes) 10 Patient Tolerance Good PT-OP-S Aquatic Treatment Start: 06/22/18 17:03 Freq: Status: Active Protocol: Document 08/31/18 10:15 CLB (Rec: 08/31/18 16:33 CLB [id number]) Aquatics Treatment Pool Entry/Exit Pool Entry/Exit Method Stairs Assistance Independent Water Walking [place] September Level of Assistance Standby Assistance Verbal Cues fwd,bck,side, september Water Level Chest Level Level of Assistance Verbal Cues Lower Extremity Exercises hip circumduction bilat both directions Equipment 10 bilat, each dir Reps/Duration small fins knee flex/ext Reps/Duration 15x squats Reps/Duration 15x Comments vc for muscle sequencing heel raises Body Position Standing Water Level Chest Level Reps/Duration 10x Comments toe raises also hip ab/ad, flex/ex Body Position Standing Water Level Chest Level Reps/Duration 10x Comments small fins Lower Extremity Stretches quads Body Position Standing Water Level Chest Level Equipment noodle Reps/Duration 2x HS, ITB, hip add Body Position Standing Water Level Chest Level Equipment noodle Reps/Duration 2x Upper Extremity Exercises hor ab/ad Body Position Standing Water Level Chest Level Reps/Duration 10x Comments open paddles Balance SLS/Tandem Body Position Standing Water Level Waist Level Reps/Duration 20 secs x2 [place] Activities [place] Activities Bicycle [place] Running Other Activities SLR with medium barbells x10 verbal cues for core activation Equipment none Duration 15 min PT-OP-T Assessment and Plan Start: 06/22/18 17:03 Freq: Status: Active Protocol: Document 08/31/18 10:15 CLB (Rec: 08/31/18 16:33 CLB [id number]) Physical Therapy Assessment Goals Four Impairment strength Diplomatic Courier Goal (LTG) patient will improve her left LE strengthe by at least 1/2 grade all muscle groups and be independent with aquatic exercise program for long-term fitness and pain management. (08/24/18: good goal progress) LTG Duration 09/21/18 Three Impairment gait Diplomatic Courier Goal (LTG) Patient will be able to ambulate on level surfaces without a limp and ascend and descend stairs with an alternating step pattern (08/24/18: good goal progress) LTG Duration 09/21/18 Two Impairment functional activities [facility]ci Goal (LTG) Patient will be able to perform sit to stand and functional squat without pain, with equal weight on jai LE's (08/24/18: good goal progress) LTG Duration 09/21/18 One Impairment activity tolerance Diplomatic Courier Goal (LTG) Lower extremity functional scale increase to 75% (08/24/18 : good goal progress, inc to 64%) LTG Duration 09/21/18 Assessment Summary Assessment Pt continues to make good progress. Pt tolerated increased resistance with small fins well. Physical Therapy Plan Frequency and Duration Frequency of Treatment 4 visits Duration of Treatment 4 wks Plan of Care Start Date 08/24/18 Plan of Care End Date 09/22/18 Therapeutic Interventions Therapeutic Interventions Aquatic Therapy Home Exercise Program Patient/Caregiver Education Self-Care/Home Management Next Visit Focus/Plan Next Note Type Treatment Note Next Visit Plan Continue to progress aquatic exercise program for strengthening, flexibility, and balance to decrease patient's pain and improve her functional activity tolerance .
--- NOTE | 2018-09-11 14:23 | PT.OPDS ---
Current Diagnoses Pain in unspecified knee (09/11/18) Cervicalgia (09/11/18) Provider Visit Care Team Role Provider Type Allen Ruffin MD Attending Provider Physician Family Provider Primary Care Provider Specialty: Family Practice Address: [address] [place] [address], [facility] Email: Visit Number Visit Number 7 Discharge Summary PT-OP-B Current Condition Start: 06/22/18 17:03 Freq: Status: Active Protocol: Document 06/19/18 09:00 SAK (Rec: 06/22/18 17:37 SAK [id number]) Current Condition History of Current Condition Onset Date 1 year Current Complaints persistent, function-limiting pain left knee and ankle. History of Current Condition Patient referred to PT with diagnosis of left knee pain and neck pain. Reports her neck pain is mostly mild at this time and would like to focus primarily on her knee pain which she states causes her to limp and makes ambulation on stairs difficult and painful. Has had prior land-based PT with minimal help. Now referred for aquatic physical therapy. States she tries ride her stationary bicycle 30 min every am and walk about 1 mile per day. Her work involves a lot of sitting at a desk and she states she knows her bent posture does not help her neck . Treatment Goals Patient/Caregiver Goals Improve her strength and flexibility, be able to ambulate on level surfaces and stairs without difficulty or limp. PT-OP-C Subjective Start: 06/22/18 17:03 Freq: Status: Active Protocol: Document 09/11/18 12:30 LJ (Rec: 09/11/18 15:09 LJ [id number]) OP-PT Subjective Patient Comments Patient Comments Pt states pain in knee has been better and is planning on going to an aquatic exercise class. She feels stronger and wants to continue exercising in the pool 2x week. PT-OP-G Mobility & Gait Start: 06/22/18 17:03 Freq: Status: Active Protocol: Document 06/19/18 09:00 SAK (Rec: 06/22/18 17:37 SAK [id number]) OP Mobility Evaluation Transfers Sit to Stand decreased use of left LE Floor Transfers difficult and painful but independent Functional Movements Lifting and Carrying painful Squats painful Stair Climbing Evaluation Evaluation Level of Assist On Stairs Independent Technique/Endurance Stair Climbing Technique Step to Step Comments Stair Climbing Comments painful PT-OP-J Posture/Palpation/Skin Start: 06/22/18 17:03 Freq: Status: Active Protocol: Document 06/19/18 09:00 [facility] (Rec: 06/22/18 17:37 [facility] [id number]) Palpation Assessment Location left knee Palpation Location joint line Palpation Findings Tenderness Skin Assessment Edema Assessment Left Leg Edema Degree 1+ PT-OP-K Range of Motion Start: 06/22/18 17:03 Freq: Status: Active Protocol: Document 06/19/18 09:00 [facility] (Rec: 06/22/18 17:37 [facility] [id number]) Cervical Spine Range of Motion Cervical Spine Active Comments moderately decreased cervical ROM with c/o stiffness and ache Hip Goniometric Range of Motion Hip ROM Limitations Comments WFL jai Knee Goniometric Range of Motion Knee ROM Limitations Comments WFL but with pain end-range flex and ext Ankle and Foot Goniometric Range of Motion Ankle and Foot ROM Limitations Comments left ankle df 5, right 8 PT-OP-L Special Tests Start: 06/22/18 17:03 Freq: Status: Active Protocol: Document 06/19/18 09:00 [facility] (Rec: 06/22/18 17:37 [facility] [id number]) Special Tests Knee Special Tests Posterior Draw Test Results negative jai Anterior Draw Test Results negative jai Varus- 0 Degrees Test Results negative jai Valgus- 0 Degrees Test Results negative jai PT-OP-M Strength Start: 06/22/18 17:03 Freq: Status: Active Protocol: Document 06/19/18 09:00 [facility] (Rec: 06/22/18 17:37 [facility] [id number]) Hip Strength Hip Manual Muscle Testing Left Flexion (L2) 4 Good Extension (S1) 3+ Fair+ Abduction 4 Good External Rotation 3+ Fair+ Internal Rotation 4+ Good+ Right Flexion (L2) 4 Good Extension (S1) 3+ Fair+ Abduction 4- Good- External Rotation 4- Good- Internal Rotation 4 Good Knee Strength Knee Manual Muscle Testing Left Flexion (S2) 4 Good Extension (L3) 4 Good Comments painful Right Flexion (S2) 5 Normal Extension (L3) 5 Normal Ankle/Foot Strength Ankle and Foot Manual Muscle Testing Left Dorsiflexion (L4) 4 Good Plantarflexion (S1) 4 Good Inversion 4 Good Eversion (S1) 4 Good Right Dorsiflexion (L4) 4+ Good+ Plantarflexion (S1) 4+ Good+ Inversion 4+ Good+ Eversion (S1) 4+ Good+ PT-OP-T Assessment and Plan Start: 06/22/18 17:03 Freq: Status: Active Protocol: Document 09/11/18 14:22 [facility] (Rec: 10/28/18 14:23 [facility] [id number]) Physical Therapy Plan Discharge Physical Therapy Discharge Reasons Goals Met
--- NOTE | 2018-09-11 15:09 | PT.OTN ---
Current Diagnoses Pain in unspecified knee (09/11/18) Cervicalgia (09/11/18) Physical Therapy Treatment Note PT-OP-A Visit Information Start: 06/22/18 17:03 Freq: Status: Active Protocol: Document 09/11/18 12:30 LJ (Rec: 09/11/18 15:09 LJ [email or web address]) Out-Patient Physical Therapy Visit Information Visit Information Visit Type Aquatic Treatment Note Visit Start Time 12:30 Visit Stop Time 13:15 Total Visit Minutes 45 Visit Number 7 Number of PREPARED FOODS ASSOCIATE Visits 2 PT-OP-B Current Condition Start: 06/22/18 17:03 Freq: Status: Active Protocol: Document 06/19/18 09:00 SAK (Rec: 06/22/18 17:37 SAK [id number]) Current Condition History of Current Condition Onset Date 1 year Current Complaints persistent, function-limiting pain left knee and ankle. History of Current Condition Patient referred to PT with diagnosis of left knee pain and neck pain. Reports her neck pain is mostly mild at this time and would like to focus primarily on her knee pain which she states causes her to limp and makes ambulation on stairs difficult and painful. Has had prior land-based PT with minimal help. Now referred for aquatic physical therapy. States she tries ride her stationary bicycle 30 min every am and walk about 1 mile per day. Her work involves a lot of sitting at a desk and she states she knows her bent posture does not help her neck . Treatment Goals Patient/Caregiver Goals Improve her strength and flexibility, be able to ambulate on level surfaces and stairs without difficulty or limp. PT-OP-C Subjective Start: 06/22/18 17:03 Freq: Status: Active Protocol: Document 09/11/18 12:30 LJ (Rec: 09/11/18 15:09 LJ [email or web address]) OP-PT Subjective Patient Comments Patient Comments Pt states pain in knee has been better and is planning on going to an aquatic exercise class. She feels stronger and wants to continue exercising in the pool 2x week. PT-OP-G Mobility & Gait Start: 06/22/18 17:03 Freq: Status: Active Protocol: Document 06/19/18 09:00 SAK (Rec: 06/22/18 17:37 SAK [id number]) OP Mobility Evaluation Transfers Sit to Stand decreased use of left LE Floor Transfers difficult and painful but independent Functional Movements Lifting and Carrying painful Squats painful Stair Climbing Evaluation Evaluation Level of Assist On Stairs Independent Technique/Endurance Stair Climbing Technique Step to Step Comments Stair Climbing Comments painful PT-OP-J Posture/Palpation/Skin Start: 06/22/18 17:03 Freq: Status: Active Protocol: Document 06/19/18 09:00 [facility] (Rec: 06/22/18 17:37 [facility] [id number]) Palpation Assessment Location left knee Palpation Location joint line Palpation Findings Tenderness Skin Assessment Edema Assessment Left Leg Edema Degree 1+ PT-OP-K Range of Motion Start: 06/22/18 17:03 Freq: Status: Active Protocol: Document 06/19/18 09:00 [facility] (Rec: 06/22/18 17:37 [facility] [id number]) Cervical Spine Range of Motion Cervical Spine Active Comments moderately decreased cervical ROM with c/o stiffness and ache Hip Goniometric Range of Motion Hip ROM Limitations Comments WFL jai Knee Goniometric Range of Motion Knee ROM Limitations Comments WFL but with pain end-range flex and ext Ankle and Foot Goniometric Range of Motion Ankle and Foot ROM Limitations Comments left ankle df 5, right 8 PT-OP-L Special Tests Start: 06/22/18 17:03 Freq: Status: Active Protocol: Document 06/19/18 09:00 [facility] (Rec: 06/22/18 17:37 [facility] [id number]) Special Tests Knee Special Tests Posterior Draw Test Results negative jai Anterior Draw Test Results negative jai Varus- 0 Degrees Test Results negative jai Valgus- 0 Degrees Test Results negative jai PT-OP-M Strength Start: 06/22/18 17:03 Freq: Status: Active Protocol: Document 06/19/18 09:00 [facility] (Rec: 06/22/18 17:37 [facility] [id number]) Hip Strength Hip Manual Muscle Testing Left Flexion (L2) 4 Good Extension (S1) 3+ Fair+ Abduction 4 Good External Rotation 3+ Fair+ Internal Rotation 4+ Good+ Right Flexion (L2) 4 Good Extension (S1) 3+ Fair+ Abduction 4- Good- External Rotation 4- Good- Internal Rotation 4 Good Knee Strength Knee Manual Muscle Testing Left Flexion (S2) 4 Good Extension (L3) 4 Good Comments painful Right Flexion (S2) 5 Normal Extension (L3) 5 Normal Ankle/Foot Strength Ankle and Foot Manual Muscle Testing Left Dorsiflexion (L4) 4 Good Plantarflexion (S1) 4 Good Inversion 4 Good Eversion (S1) 4 Good Right Dorsiflexion (L4) 4+ Good+ Plantarflexion (S1) 4+ Good+ Inversion 4+ Good+ Eversion (S1) 4+ Good+ PT-OP-Q Treatments Start: 06/22/18 17:03 Freq: Status: Active Protocol: Document 06/19/18 09:00 SAK (Rec: 06/22/18 17:37 SAK [id number]) Self-Care/Home Management Treatment Education Patient Education Home Exercise Program Other Education written handout issued PT-OP-R Modalities Start: 06/22/18 17:03 Freq: Status: Active Protocol: Document 06/19/18 09:00 SAK (Rec: 06/22/18 17:37 SAK [id number]) Hot Pack/Cold Pack Treatment Cold Pack Location left knee Patient Position Hooklying Treatment Duration (minutes) 10 Patient Tolerance Good PT-OP-S Aquatic Treatment Start: 06/22/18 17:03 Freq: Status: Active Protocol: Document 09/11/18 12:30 LJ (Rec: 09/11/18 15:09 LJ [email or web address]) Aquatics Treatment Pool Entry/Exit Pool Entry/Exit Method Stairs Assistance Independent Water Walking [place] September Level of Assistance Standby Assistance Verbal Cues Comments straight leg and hor. abd fwd,bck,side, march Water Level Chest Level Level of Assistance Verbal Cues Lower Extremity Exercises sit kicks Details squating at wall Reps/Duration 10x bilat hip circumduction bilat both directions Equipment 10 bilat, each dir knee flex/ext Reps/Duration 15x squats Reps/Duration 15x Comments vc for muscle sequencing heel raises Body Position Standing Water Level Chest Level Reps/Duration 10x Comments toe raises also hip ab/ad, flex/ex Body Position Standing Water Level Chest Level Reps/Duration 10x Comments small fins Lower Extremity Stretches quads Body Position Standing Water Level Chest Level Equipment noodle Reps/Duration 2x HS, ITB, hip add Body Position Standing Water Level Chest Level Equipment noodle Reps/Duration 2x Upper Extremity Exercises uni horizontal abd/add Details squat at wall Comments cues for abdominal bracing hor ab/ad Body Position Standing Water Level Chest Level Reps/Duration 10x Comments open paddles Maryneal Activities Maryneal Activities Bicycle [place] Running Hip Abduction/Adduction Other Activities pendulum x10 SLR with noodle x10 sidelying bicycling bilat x1 min each direction intervals 30/30 x 10 min Equipment none Duration 20 min PT-OP-T Assessment and Plan Start: 06/22/18 17:03 Freq: Status: Active Protocol: Document 09/11/18 12:30 DAMION (Rec: 09/11/18 15:09 [facility] [email or web address]) Physical Therapy Assessment Rehab Potential Rehabilitation Potential Good Evaluation Complexity Number of Personal Factors/Comorbidities 1-2 Number of Body Systems Impaired 3 Clinical Presentation at Evaluation Stable Impairments Impairments Activity Tolerance Functional Activities Gait Strength Goals Four Impairment strength Regional Education Manager Goal (LTG) patient will improve her left LE strengthe by at least 1/2 grade all muscle groups and be independent with aquatic exercise program for long-term fitness and pain management. (08/24/18: good goal progress) LTG Duration 09/21/18 Three Impairment gait Regional Education Manager Goal (LTG) Patient will be able to ambulate on level surfaces without a limp and ascend and descend stairs with an alternating step pattern (08/24/18: good goal progress) LTG Duration 09/21/18 Two Impairment functional activities Retirement Goal (LTG) Patient will be able to perform sit to stand and functional squat without pain, with equal weight on jai LE's (08/24/18: good goal progress) LTG Duration 09/21/18 One Impairment activity tolerance Regional Education Manager Goal (LTG) Lower extremity functional scale increase to 75% (08/24/18 : good goal progress, inc to 64%) LTG Duration 09/21/18 Assessment Summary Assessment Pt continues to make good progress. Pt tolerated increased intensity and complexity of deep water exercises. Physical Therapy Plan Frequency and Duration Frequency of Treatment 4 visits Duration of Treatment 4 wks Plan of Care Start Date 08/24/18 Plan of Care End Date 09/22/18 Therapeutic Interventions Therapeutic Interventions Aquatic Therapy Home Exercise Program Patient/Caregiver Education Self-Care/Home Management Next Visit Focus/Plan Next Note Type Treatment Note Next Visit Plan Pt discharging to transition to community aquatic exercise class. Given HEP for pool exercises.
== END 2018-10-28 15:27 | disposition home or self-care (01) ==
LOC: PHYS 12:30
PROVIDERS: Family Provider Family Medicine; PCP Family Medicine; Visit Provider Family Medicine
DX: M54.2 Cervicalgia (principal); M25.569 Pain in unspecified knee
CPT/HCPCS: 97113; 97161; 97535

== ENCOUNTER → 2021-02-27 10:44 | Outpatient (CLI) | payer OTHER, SELFPAY ==
--- NOTE | 2021-02-27 | DI.RAD.S_ITS ---
PROCEDURE: XR DEXA AXIAL SKELETON INDICATIONS: Asymptomatic menopausal state COMPARISON: [facility], CR, XR DEXA AXIAL SKELETON, 01/28/2018, 10:26. FINDINGS: This blank DEXA report has been sent in error by the PACS system. The correct and complete report will be forthcoming in 1-2 days. Thank you for your patience and understanding. Dictated by: Barbara Cardoza MD, PhD on 02/27/2021 at 12:06 Approved by: Barbara Cardoza MD, PhD on 02/27/2021 at 12:06
== END ==
PROVIDERS: Referring Provider Family Medicine; Visit Provider Family Medicine
DX: M85.851 Other specified disorders of bone density and structure, right thigh (principal); Z78.0 Asymptomatic menopausal state; Z82.62 Family history of osteoporosis
CPT/HCPCS: 77080

== ENCOUNTER → 2021-03-15 16:01 | Outpatient (CLI) | payer OTHER, SELFPAY ==
--- NOTE | 2021-03-15 16:04 | DI.MG.S_ITS ---
BILATERAL DIGITAL SCREENING MAMMOGRAM 3D/2D WITH CAD: 03/15/2021 CLINICAL: Routine screening. Family history of breast cancer. Comparison is made to exams dated: 01/28/2018 mammogram, 08/08/2016 mammogram, and 04/27/2014 mammogram - [facility]. The tissue of both breasts is heterogeneously dense. This may lower the sensitivity of mammography. Current study was also evaluated with a Computer Aided Detection (CAD) system. There is an oval low density asymmetry with an indistinct margin in the right breast middle depth superior region seen on the mediolateral oblique view only. No other significant masses, calcifications, or other findings are seen in either breast. IMPRESSION: INCOMPLETE: NEEDS ADDITIONAL IMAGING EVALUATION The oval low density asymmetry in the right breast is indeterminate. Mediolateral and spot compression views as well as additional views with possible ultrasound are recommended. This exam was interpreted at Station ID: [id number]. NOTE: For mammograms, a report in lay terms will be sent to the patient. Approximately 15% of breast malignancies will not be visualized mammographically. In the management of a palpable breast mass, a negative mammogram must not discourage biopsy of a clinically suspicious lesion. Electronically Signed By: Gato tan/bernardo:03/15/2021 16:32:57 letter sent: Additional Imaging Needed ACR BI-RADS Category 0: Incomplete 3340F
== END ==
PROVIDERS: PCP Family Medicine; Referring Provider Family Medicine; Visit Provider Family Medicine
DX: Z12.31 Encounter for screening mammogram for malignant neoplasm of breast (principal); Z80.3 Family history of malignant neoplasm of breast
CPT/HCPCS: 77063; 77067

== ENCOUNTER → 2021-04-03 14:55 | Outpatient (CLI) | payer OTHER, SELFPAY ==
--- NOTE | 2021-04-03 | DI.MG.S_ITS ---
UNILATERAL RIGHT DIGITAL DIAGNOSTIC MAMMOGRAM 3D/2D WITH ADDITIONAL VIEWS: 04/03/2021 CLINICAL: Additional evaluation requested from prior study. Comparison is made to exams dated: 03/15/2021 mammogram, 01/28/2018 mammogram, and 08/08/2016 mammogram - [facility]. The tissue of right breast is heterogeneously dense. This may lower the sensitivity of mammography. There is a irregular asymmetry with indistinct margins in the right breast middle depth superior region seen on the mediolateral oblique view only is not seen on additional views. Findings are consistent with superimposition of fibroglandular tissue. No other significant masses or calcifications are seen in the breast. IMPRESSION: BENIGN There is no mammographic evidence of malignancy. A 1 year screening mammogram is recommended. This exam was interpreted at Station ID: [id number]. NOTE: For mammograms, a report in lay terms will be sent to the patient. Approximately 15% of breast malignancies will not be visualized mammographically. In the management of a palpable breast mass, a negative mammogram must not discourage biopsy of a clinically suspicious lesion. Electronically Signed By: Gato tan/:04/03/2021 15:21:59 letter sent: Normal Exam ACR BI-RADS Category 2: Benign Finding(s) 3342F
== END ==
PROVIDERS: PCP Family Medicine; Referring Provider Family Medicine; Visit Provider Family Medicine
DX: R92.8 Other abnormal and inconclusive findings on diagnostic imaging of breast (principal)
CPT/HCPCS: 77065; G0279

== ENCOUNTER → 2024-03-03 14:08 | Outpatient (CLI) | payer OTHER, SELFPAY ==
--- NOTE | 2024-03-03 14:12 | DI.MG.S_ITS ---
BILATERAL DIGITAL SCREENING MAMMOGRAM 3D/2D WITH CAD: 03/03/2024 CLINICAL: Routine screening. Family history of breast cancer. Comparison is made to exams dated: 03/15/2021 mammogram, 01/28/2018 mammogram, and 08/08/2016 mammogram - [facility]. Both breasts are heterogeneously dense, which may obscure small masses (category c / 51-75% glandular tissue). Current study was also evaluated with a Computer Aided Detection (CAD) system. No significant masses, calcifications, or other findings are seen in either breast. There has been no significant interval change. IMPRESSION: NEGATIVE There is no mammographic evidence of malignancy. A 1 year screening mammogram is recommended. Based on the Tyrer Cuzick model (a risk assessment model) the patient's lifetime risk is 17.2% and her 10 year risk is 8.5%. According to the ACR, ACS, and NCCN guidelines, an annual breast MRI exam along with mammogram is recommended if the patient's lifetime risk is 20% or greater. This exam was interpreted at Station ID: [id number]. NOTE: For mammograms, a report in lay terms will be sent to the patient. Approximately 15% of breast malignancies will not be visualized mammographically. In the management of a palpable breast mass, a negative mammogram must not discourage biopsy of a clinically suspicious lesion. Electronically Signed By: Cory riley/bernardo:03/03/2024 16:00:16 letter sent: Normal Exam ACR BI-RADS Category 1: Negative 3341F
== END ==
PROVIDERS: PCP Family Medicine; Referring Provider Family Medicine; Visit Provider Family Medicine
DX: Z12.31 Encounter for screening mammogram for malignant neoplasm of breast (principal); R92.333 Mammographic heterogeneous density, bilateral breasts; Z80.3 Family history of malignant neoplasm of breast
CPT/HCPCS: 77063; 77067

== ENCOUNTER 2024-04-07 09:30 | Day surgery (SDC) | payer OTHER, SELFPAY ==
[2024-04-07 10:07] VITALS: BP 144/95; PULSE 85; RESP 10; TEMP 36.6; O2SAT 94
[2024-04-07] MEDS: LACTATED RINGERS 1,000 ML 42 ML IV (10:25)
--- NOTE | 2024-04-07 10:52 | P.OP.COLON_ITS ---
Operative Date/Time/Diagnoses Date of procedure: 04/07/24 Pre-op diagnosis: See indication and findings Procedure & Clinicians Study performed: Colonoscopy Indications: Screening Surgeon: Don Zamora Procedure Notes Procedure in detail: After informed consent was obtained the patient was placed in left lateral d ecubitus position. The video colonoscope was introduced the rectum slowly advanced to the cecum. Preparation was good. On slow weeks withdrawal the mucosa was carefully examined. The scope was removed. The patient tolerated procedure well. Blood loss none Complications none Sedation mac Findings 1. Occasional scattered left-sided diverticulosis 2. Otherwise negative colonoscopy to cecum Should have follow-up colonoscopy in 10 years
--- NOTE | 2024-04-07 10:52 | PM.HP.1 ---
History of Present Illness History of Present Illness Date Patient Seen: 04/07/24 Chief complaint: SDC Narrative: Screening colonoscopy PFSH Social History Smoking Status: Never smoker Meds Home Medications and Allergies Allergies Allergy/AdvReac Type Severity Reaction Status Date / Time SULFA (SULFONAMIDE) Allergy Unknown RASH Uncoded 04/07/24 10:26 Exam Vital Signs (past 8 hours): - 04/07/24 10:07 Temperature 97.9 F Pulse Rate 85 Respiratory Rate 10 L Blood Pressure 144/95 H Pulse Oximetry 94 Oxygen Delivery Method Room Air Oxygen Delivery Method Room Air Narrative Exam Narrative: Oropharynx free of lesions Chest clear to auscultation percussion Cardiac exam reveals no S3 or murmur Assessment & Plan Assessment & Plan narrative: Need for screening colonoscopy. Risks, benefits, alternatives have been explained. Time-Based Coding :: [TOTAL MINUTES] spent with patient and on the chart (including review of chart, obtaining history, exam, reviewing outside data, placing orders, documenting exam and treatment plan, and counseling patient) on [DATE].
[2024-04-07 11:13] VITALS: BP 111/72; PULSE 73; RESP 16; TEMP 36.8; O2SAT 93
[2024-04-07 11:20] VITALS: BP 113/66; PULSE 66; RESP 17; TEMP 37; O2SAT 93
== END 2024-04-07 11:42 | disposition home or self-care (01) ==
PROVIDERS: PCP Family Medicine; Referring Provider Internal Medicine Gastroenterology; Visit Provider Internal Medicine Gastroenterology
PROC: 0DJD8ZZ Inspection of Lower Intestinal Tract, Via Natural or Artificial Opening Endoscopic (ICD-10-PCS; CPT 45378; principal; 2024-04-07 10:30)
DX: Z12.11 Encounter for screening for malignant neoplasm of colon (principal); K57.30 Diverticulosis of large intestine without perforation or abscess without bleeding
CPT/HCPCS: G0121; J2704